=== PATIENT | female | born 1970 | race Caucasian/White ===

== ENCOUNTER 2019-11-08 15:32 | Emergency (ER) | payer BC, OTHER ==
[~2019-11-08] VITALS: Ht 157.5 cm; Wt 68.0 kg
[2019-11-08 15:35] VITALS: BP 130/44
--- NOTE | 2019-11-08 16:02 | ER.PDOC ---
General Chief Complaint: General Complaint Stated Complaint: HIGH HEART RATE Time seen by MD: 16:02 Source: patient Exam Limitations: no limitations History of Present Illness Initial Comments Palpitations for past few days, patient says that she is under a lot of stress caused by her boyfriend. No chest pain or SOB. She is on Xanax 4 times a day for anxiety. Quality: fast Associated Symptoms: anxiety Allergies: Coded Allergies: Sulfa (Sulfonamide Antibiotics) (Verified Allergy, 05/19/13) azithromycin (Verified Allergy, 05/19/13) Past Medical History Medical History: hypertension, other (Anxiety) Surgical History: breast augmentation Social History Alcohol Use: none Drug Use: none Constitutional: no symptoms reported Respiratory: no symptoms reported Cardiovascular: see HPI Gastrointestinal: no symptoms reported Genitourinary: no symptoms reported Psychiatric/Neurological: anxiety All Other Systems: Reviewed and Negative Physical Exam General Appearance: Anxious Neck: Non-Tender, Full Range of Motion, Supple, Normal Inspection Respiratory: chest non-tender, lungs clear, normal breath sounds, no respiratory distress, no accessory muscle use Cardiovascular: Normal Peripheral Pulses, Regular Rate, Rhythm, No Edema, No Gallop, No JVD, No Murmur Gastrointestinal: Normal Bowel Sounds, No Organomegaly, No Pulsatile Mass, Non Tender, Soft Extremities: Normal Range of Motion, Non-Tender, Normal Inspection, No Pedal Edema, No Calf Tenderness, Normal Capillary Refill 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, No Motor/Sensory Deficits, Alert, Normal Mood/Affect, Oriented x 3 Skin: Normal Color, Warm/Dry Results/Orders Results/Orders Orders - ELICEO ROGEL MD Cbc With Auto Diff (11/08/19 15:53) Comprehensive Metabolic Panel (11/08/19 15:53) Creatine Kinase (11/08/19 15:53) Creatine Kinase Mb (11/08/19 15:53) Troponin I (11/08/19 15:53) Xr Chest 1v (11/08/19 15:53) Ekg-Routine (11/08/19 15:53) Vital Signs Date Time Temp Pulse Resp B/P (MAP) Pulse Ox O2 Delivery O2 Flow Rate FiO2 11/08/19 15:35 98.5 104 18 130/44 (72) 98 Room Air 11/08/19 15:35 98.5 104 18 98 11/08/19 15:35 98.5 104 18 Progress Progress Patient took one of her Xanax pills here and her symptoms resolved. She is feeling better and ready to go home. EKG/XRAY/CT/US EKG: NSR XRAY: chest (No actuve disease) Departure Time of Disposition: 16:58 Disposition: 01 HOME, SELF-CARE Impression: Primary Impression: Anxiety Condition: Improved Referrals: BENJAMIN RAMOS MD (PCP) PRIMARY CARE PROVIDER Additional Instructions: Continue Xanax at home F/U with your PCP in 2-3 days Return to ED if worsening symptoms or concerns Duration or Time Spent with Pa: 60 min PEBBLES,ELICEO Youngblood MD Nov 08, 2019 16:02
--- NOTE | 2019-11-08 16:03 | PCM.EKG ---
[facility] Test Date: 2019-11-08 Test Time: 15:48:42 Pat Name: DANNY GARCIAS Department: Room: Gender: F Hand Singer: MALIK : 1970 Requested By: ELICEO ROGEL Order Number: [id number] Reading MD: Eliceo ROGEL Measurements Intervals [place] Rate: 80 P: 73 [place]: 162 QRS: 79 QRSD: 95 T: 23 QT: 400 QTc: 462 Interpretive Statements Sinus rhythm Baseline wander in lead(s) V2 No previous ECG available for comparison Electronically Signed On 11-11-2019 9:30:14 CDT by Eliceo ROGEL Please click the below link to view image of tracing.
[2019-11-08 16:10] LABS: BASOPHIL % 0.3 % (0.0-0.2); EOSINOPHIL # 0.1 10^3/uL (0.0-0.2); EOSINOPHIL % 1.2 % (0.0-5.0); LYMPHOCYTES % 25.7 % (24.0-44.0); MEAN CORP HGB 29.4 pg (26-34); MONOCYTES # 0.4 10^3/uL (0.3-0.8); MONOCYTES % 6.3 % (5.0-12.0); NEUTROPHIL # 4.4 10^3/uL (1.8-7.7); NEUTROPHILS % 66.3 % (41.0-85.0); PLATELET COUNT 288 10^3/uL (150-400); RED CELL DISTRIBUTION WIDTH 12.8 % (11.5-14.5)
--- NOTE | 2019-11-08 16:15 | DIREP ---
PROCEDURE:CHEST 1 VIEW COMPARISON:None. INDICATIONS:Palpitations FINDINGS: LUNGS/PLEURA:No confluent pulmonary infiltrate. No effusions. No pneumothorax. VASCULATURE:Unremarkable pulmonary vasculature. CARDIAC:No cardiac silhouette abnormality or cardiomegaly. MEDIASTINUM:No visible mass or adenopathy. BONES:No fracture or visible bony lesion. OTHER:Negative. CONCLUSION: 1. Unremarkable chest radiograph. Dictated by: Archana Altamirano MD on 11/08/2019 at 04:13 PM
[2019-11-08 16:37] LABS: ALANINE AMINOTRANSFERASE(ML) 34 U/L (12-78); ALKALINE PHOSPHATASE 109 U/L (50-136); ASPARTATE AMINO TRANSFERASE 23 U/L (0-35); CALCIUM 9.5 mg/dL (8.4-10.5); CARBON DIOXIDE 27.7 mmol/L (20.0-32); GLUCOSE 97 mg/dL (70-110)
[2019-11-08 16:55] VITALS: BP 128/83
== END 2019-11-08 17:05 | disposition home or self-care (01) ==
LOC: ER 15:32
DX: F41.9 Anxiety disorder, unspecified (principal); I10 Essential (primary) hypertension; Z88.1 Allergy status to other antibiotic agents; Z88.2 Allergy status to sulfonamides
CPT/HCPCS: 36415; 71045; 80053; 82550; 82553; 84484; 85025; 93005; 99285